=== PATIENT | male | born 1955 | race Caucasian/White ===

== ENCOUNTER 2022-03-10 10:33 | Emergency (ER) | payer OTHER, MEDICARE ==
[~2022-03-10] VITALS: Ht 193 cm; Wt 109.1 kg
[2022-03-10 11:19] VITALS: BP 153/106
[2022-03-10] MEDS ORDERED: PRED10TA23 PO (14:53)
== END 2022-03-10 15:16 | disposition home or self-care (01) ==
LOC: ER 10:33
DX: R20.0 Anesthesia of skin (principal); R53.1 Weakness; Z79.899 Other long term (current) drug therapy
CPT/HCPCS: 99283